=== PATIENT | female | born 1990 | race Caucasian/White ===

== ENCOUNTER 2023-10-27 18:47 | Outpatient (REF) | payer BC, SELFPAY ==
[2023-10-27 21:23] LABS: Abs Immature Grans 0.04 10^3/uL (0.0-0.06); Absolute Basophil Count 0.05 10^3/uL (0.0-0.2); Absolute Eosinophil Count 0.23 10^3/uL (0.0-0.7); Absolute Lymphocyte Count 3.62 10^3/uL (1.2-3.4); Basophils % 0.4; Eosinophils % 1.9; HCT 42.8 % (36.0-46.0); Immature Grans % 0.3; Lymphocytes % 29.5; MCH 28.5 pg (27.0-33.0); MCHC 32.7 % (32.0-36.0); MCV 87 fL (80-95); MPV 9.9 fL (8.0-11.0); Monocytes % 4.6; Neutrophils % 63.3; Platelet Count 411 10^3/uL (130-400); RBC 4.92 10^6/uL (3.93-5.22); RDW-SD 41.1 fL; WBC 12.26 10^3/uL (4.4-10.8)
[2023-10-27 21:24] LABS: Absolute Monocyte Count 0.56 10^3/uL (0.1-0.8); Absolute Neutrophil Count 7.76 10^3/uL (1.2-6.7)
[2023-10-27 21:38] LABS: Iron 39 ug/dL (50-170); Total Iron Binding Capacity 440 ug/dL (250-450); Transferrin Sat 9 % (15-50)
[2023-10-27 23:13] LABS: BUN 15 mg/dL (7-18); CREATININE 1.2 mg/dL (0.55-1.02); Calcium 10.3 mg/dL (8.5-10.1); Chloride 101 mmol/L (98-107); Estimated GFR 62.45 (mL/min/1.73m2); Ferritin 41 ng/mL (8-252); Glucose 80 mg/dL (74-106); Potassium 4.2 mmol/L (3.5-5.1); Sodium 140 mmol/L (136-145); TSH 2.88 uIU/mL (0.36-3.74)
[2023-10-27 23:18] LABS: HCG Quant, Pregnancy < 1 mIU/mL (1-3)
[2023-10-28 22:01] LABS: Estradiol 13 pg/mL (See Note)
[2023-10-30 08:56] LABS: FSH 6.6 mIU/mL (See Note); LH 3.3 mIU/mL (See Note)
[2023-10-30 09:07] LABS: Prolactin 10.4 ng/mL (See Note)
== END 2023-10-27 18:48 | disposition home or self-care (01) ==
LOC: NCHCN 18:47
PROVIDERS: Referring Provider Family Medicine; Visit Provider Family Medicine
DX: N92.1 Excessive and frequent menstruation with irregular cycle (principal); R03.0 Elevated blood-pressure reading, without diagnosis of hypertension
CPT/HCPCS: 80048; 82670; 82728; 83001; 83002; 83540; 83550; 84146; 84443; 84702; 85025

== ENCOUNTER 2023-11-30 18:01 | Outpatient (REF) | payer BC, SELFPAY ==
[2023-11-30 21:02] LABS: Abs Immature Grans 0.01 10^3/uL (0.0-0.06); Absolute Basophil Count 0.06 10^3/uL (0.0-0.2); Absolute Eosinophil Count 0.22 10^3/uL (0.0-0.7); Absolute Lymphocyte Count 3.54 10^3/uL (1.2-3.4); Absolute Monocyte Count 0.67 10^3/uL (0.1-0.8); Absolute Neutrophil Count 6.26 10^3/uL (1.2-6.7); Basophils % 0.6; HCT 40.4 % (36.0-46.0); HGB 13.3 g/dL (11.2-15.7); Immature Grans % 0.1; Lymphocytes % 32.9; MCHC 32.9 % (32.0-36.0); MCV 88 fL (80-95); MPV 10.2 fL (8.0-11.0); Monocytes % 6.2; Neutrophils % 58.2; Platelet Count 416 10^3/uL (130-400); RBC 4.59 10^6/uL (3.93-5.22); RDW 12.7 % (11.7-14.6); RDW-SD 41.1 fL; WBC 10.76 10^3/uL (4.4-10.8)
[2023-11-30 21:11] LABS: Anion Gap 9.9 mmol/L (3-11); BUN 17 mg/dL (7-18); CO2 28.1 mmol/L (21.0-32.0); CREATININE 1.2 mg/dL (0.55-1.02); Calcium 9.4 mg/dL (8.5-10.1); Chloride 103 mmol/L (98-107); Estimated GFR 62.45 (mL/min/1.73m2); Glucose 86 mg/dL (74-106); Potassium 4.2 mmol/L (3.5-5.1); Sodium 141 mmol/L (136-145)
== END 2023-11-30 18:02 | disposition home or self-care (01) ==
LOC: NCHCN 18:01
PROVIDERS: PCP Family Medicine; Referring Provider Family Medicine; Visit Provider Family Medicine
DX: R79.89 Other specified abnormal findings of blood chemistry (principal); D72.829 Elevated white blood cell count, unspecified
CPT/HCPCS: 80048; 85025

== ENCOUNTER 2024-12-05 11:41 | Outpatient (REF) | payer BC, SELFPAY ==
--- NOTE | 2024-12-05 10:20 | PAPFT_PTH ---
PATIENT: Evelyn Yang LOC: [facility] U#:[id number] AGE/SX: 33/F ROOM: RE12/05/[address]: Richa Spangler : 1990 BED: DIS: 12/05/2024 SPEC #: [id number] RECD: 12/05/24 17:54 STATUS: STEVEN REEdwin #: [id number] JULIA: 12/05/24 10:[address]: Richa Spangler DEPT: ON LICENSE OF [facility] Cytology RECD BY: Sara Carrasco Tissues: 1 - CX/ENDOCX FOR PAP SMEARS Procedures: PAP THIN PREP/[facility] Screening HPV DNA PROBE Comments: [id number] (HPV 16 & 18/45)
[2024-12-05 14:48] LABS: Abs Immature Grans 0.02 10^3/uL (0.0-0.06); Absolute Basophil Count 0.04 10^3/uL (0.0-0.2); Absolute Eosinophil Count 0.22 10^3/uL (0.0-0.7); Absolute Lymphocyte Count 2.66 10^3/uL (1.2-3.4); Absolute Monocyte Count 0.45 10^3/uL (0.1-0.8); Absolute Neutrophil Count 4.98 10^3/uL (1.2-6.7); Basophils % 0.5 %; Eosinophils % 2.6 %; HCT 47.1 % (36.0-46.0); HGB 14.9 g/dL (11.2-15.7); Immature Grans % 0.2 %; Lymphocytes % 31.8 %; MCHC 31.6 % (32.0-36.0); MCV 88 fL (80-95); MPV 10.3 fL (8.0-11.0); Monocytes % 5.4 %; Neutrophils % 59.5 %; Platelet Count 401 10^3/uL (130-400); RBC 5.33 10^6/uL (3.93-5.22); RDW 13.2 % (11.7-14.6); RDW-SD 42.5 fL; WBC 8.37 10^3/uL (4.4-10.8)
[2024-12-05 15:47] LABS: ALT 28 U/L (14-59); AST 23 U/L (15-37); Albumin 4.2 g/dL (3.4-5.0); Alkaline Phosphatase 65 U/L (46-116); Anion Gap 11.4 mmol/L (3-11); BUN 18 mg/dL (7-18); Bilirubin, Total 0.6 mg/dL (0.2-1.0); CO2 26.6 mmol/L (21.0-32.0); CREATININE 1.1 mg/dL (0.55-1.02); Calcium 9.9 mg/dL (8.5-10.1); Chloride 104 mmol/L (98-107); Estimated GFR 68.89 (mL/min/1.73m2); Glucose 100 mg/dL (74-106); Potassium 4.1 mmol/L (3.5-5.1); Sodium 142 mmol/L (136-145); Total Protein 7.8 g/dL (6.4-8.2)
[2024-12-05 16:57] LABS: COMMENT (LAB VIEW ONLY) 57.31 mg/dL; Microalb ug/mg Crea 3.7 ug/mg Cr
== END 2024-12-05 11:42 | disposition home or self-care (01) ==
LOC: NCHCN 11:41
PROVIDERS: PCP Family Medicine; Visit Provider Family Medicine
DX: R79.89 Other specified abnormal findings of blood chemistry (principal); D72.829 Elevated white blood cell count, unspecified; Z11.51 Encounter for screening for human papillomavirus (HPV); Z01.419 Encounter for gynecological examination (general) (routine) without abnormal findings; R87.618 Other abnormal cytological findings on specimens from cervix uteri
CPT/HCPCS: 80053; 88142; 82043; 82570; 85025; 87624